=== PATIENT | male | born 1960 | race Caucasian/White ===

== ENCOUNTER 2017-07-05 13:32 | Emergency (ER) | payer OTHER ==
[2017-07-05] MEDS: morphine 2 MG INJ IV (15:14)
[2017-07-05] MEDS: DEXAMETHASONE 10 MG/ML 1 ML INJ IV (15:15)
== END 2017-07-05 16:15 | disposition home or self-care (01) ==
LOC: FTE 13:32
DX: M10.9 Gout, unspecified (principal)
CPT/HCPCS: 96374; 96375; 99284-25

== ENCOUNTER 2017-07-08 15:37 | Emergency (ER) | payer SELFPAY, OTHER | END 2017-07-08 16:31 | disposition left against medical advice (07) | LOC: E/R 16:31 | DX: Z53.21 Procedure and treatment not carried out due to patient leaving prior to being seen by health care provider (principal) ==

== ENCOUNTER 2017-07-08 16:22 | Inpatient (IN) | payer OTHER ==
[2017-07-08] MEDS ORDERED: ONDANSETRON 4 MG TAB PO (18:30)
[2017-07-08] MEDS ORDERED: DOCUSATE SODIUM 100 MG CAP PO (18:30)
[2017-07-08] MEDS ORDERED: NACL 0.9% 3 ML SYG IV (18:30)
[2017-07-08] MEDS ORDERED: MAGNESIUM HYDROXIDE 30ML CUP PO (18:30)
[2017-07-08] MEDS ORDERED: VANCOMYCIN IV PER PHARMACY XX (18:30)
[2017-07-08] MEDS ORDERED: ACETAMINOPHEN 650 MG SUPP PR (18:30)
[2017-07-08] MEDS ORDERED: HYDROCODONE/APAP (5/325) TAB PO (18:30)
[2017-07-08] MEDS ORDERED: BISACODYL (EC) 5 MG TAB PO (18:30)
[2017-07-08] MEDS ORDERED: ONDANSETRON 4 MG INJ IV (18:30)
[2017-07-08 21:21] LABS: CREATININE,URINE RANDOM 159.19 mg/dl (20-370); PROTEIN/CREAT RATIO 0.05 RATIO
[2017-07-08 21:22] LABS: ALANINE AMINOTRANSFERASE 31 IU/L (13-69); ALBUMIN 4.3 g/dl (3.3-4.9); ALBUMIN/GLOBULIN RATIO 1.19; ALKALINE PHOSPHATASE 104 IU/L (42-121); ANION GAP 16 (8-16); ASPARTATE AMINO TRANSFERASE 19 IU/L (15-46); BILIRUBIN,INDIRECT 0.2 mg/dl (0-1.1); BILIRUBIN,TOTAL 0.2 mg/dl (0.2-1.3); BLOOD UREA NITROGEN 21 mg/dl (7-20); CALCIUM 8.8 mg/dl (8.4-10.2); CARBON DIOXIDE 28 mmol/L (21-31); CHLORIDE 101 mmol/L (97-110); CREATININE 1.33 mg/dl (0.61-1.24); GLUCOSE 111 mg/dl (70-220); POTASSIUM 4.1 mmol/L (3.5-5.1); SODIUM 141 mmol/L (135-144); TOTAL PROTEIN 7.9 g/dl (6.1-8.1)
[2017-07-08] MEDS: APIXABAN 5 MG TABLET PO (21:24)
[2017-07-08] MEDS: morphine 2 MG INJ IV (21:26)
[2017-07-08 21:32] LABS: INR 1.06; PROTIME 13.9 Sec (11.9-14.9); PT RATIO 1.1
[2017-07-08] MEDS: HYDROCODONE/APAP (5/325) TAB PO (21:49)
[2017-07-09] MEDS: CEFTRIAXONE 1 GM/50 ML (PMX) 50 ML IVPB ×2 (01:10→18:50)
[2017-07-09] MEDS: VANCOMYCIN 2 GM in DEXTROSE 5% 500 ML IVPB (01:10)
[2017-07-09] MEDS: PANTOPRAZOLE 40 MG INJ IV (05:43)
[2017-07-09] MEDS: VANCOMYCIN 1.75 GM in DEXTROSE 5% 500 ML IVPB ×2 (09:09→21:34)
[2017-07-09] MEDS: APIXABAN 5 MG TABLET PO ×2 (09:16→21:34)
[2017-07-09] MEDS: ALLOPURINOL 300 MG TAB PO (09:16)
[2017-07-09] MEDS: FUROSEMIDE 20 MG INJ IV (09:16)
[2017-07-09] MEDS: HYDROCODONE/APAP (5/325) TAB PO ×2 (10:09→21:34)
[2017-07-09 11:33] LABS: ADD MAN DIFF? NO
[2017-07-09 11:35] LABS: WHITE BLOOD COUNT 9.4 10^3/ul (4.8-10.8)
[2017-07-09 11:35] LABS: BASOPHIL # 0.1 10^3/ul (0.0-0.1); BASOPHILS % 0.6 % (0.0-2.0); EOSINOPHILS # 0.2 10^3/ul (0.0-0.5); EOSINOPHILS % 2.6 % (0.0-7.0); HEMATOCRIT 36.7 % (42.0-52.0); HEMOGLOBIN 12.3 g/dl (14.0-18.0); LYMPHOCYTES # 1.5 10^3/ul (0.8-2.9); LYMPHOCYTES % 16.1 % (15.0-51.0); MEAN CORPUSCULAR HEMOGLOBIN 29.5 pg (29.0-33.0); MEAN CORPUSCULAR HGB CONC 33.5 g/dl (32.0-37.0); MEAN PLATELET VOLUME 9.6 fl (7.4-10.4); MONOCYTE # 0.9 10^3/ul (0.3-0.9); MONOCYTES % 9.1 % (0.0-11.0); NEUTROPHIL # 6.6 10^3/ul (1.6-7.5); NEUTROPHILS % 70.4 % (39.0-77.0); PLATELET COUNT 228 10^3/UL (140-415); RED BLOOD COUNT 4.17 10^6/ul (4.70-6.10); RED CELL DISTRIBUTION WIDTH 13.7 % (11.5-14.5)
[2017-07-09 13:56] LABS: HEMOGLOBIN A1C 5.5 % (0-5.9)
[2017-07-10] MEDS: ACETAMINOPHEN 325 MG TAB PO (03:10)
[2017-07-10] MEDS: PANTOPRAZOLE 40 MG INJ IV (05:47)
[2017-07-10 07:36] LABS: BLOOD UREA NITROGEN 24 mg/dl (7-20)
[2017-07-10 07:36] LABS: CREATININE 1.29 mg/dl (0.61-1.24)
[2017-07-10 07:45] LABS: VANCOMYCIN,TROUGH 20.7 ug/ml (10.0-20.0)
[2017-07-10] MEDS: FUROSEMIDE 20 MG INJ IV (09:10)
[2017-07-10] MEDS: APIXABAN 5 MG TABLET PO ×2 (09:11→21:32)
[2017-07-10] MEDS: ALLOPURINOL 300 MG TAB PO (09:11)
[2017-07-10] MEDS: VANCOMYCIN 1.25 GM in SOD CHLORIDE 0.45% 250 ML IVPB (11:42)
[2017-07-10] MEDS: CEFTRIAXONE 1 GM/50 ML (PMX) 50 ML IVPB (19:01)
[2017-07-11] MEDS: VANCOMYCIN 1.25 GM in SOD CHLORIDE 0.45% 250 ML IVPB ×2 (00:24→11:00)
[2017-07-11] MEDS: SOD CHLORIDE 0.9% 1,000 ML IV ×3 (00:28→20:39)
[2017-07-11] MEDS: PANTOPRAZOLE 40 MG INJ IV (06:13)
[2017-07-11] MEDS: ALLOPURINOL 300 MG TAB PO (08:53)
[2017-07-11] MEDS: APIXABAN 5 MG TABLET PO ×2 (08:53→20:39)
[2017-07-11] MEDS: FUROSEMIDE 20 MG INJ IV (08:54)
[2017-07-11] MEDS ORDERED: HYDROCODONE/APAP (10/325) TAB (09:12)
[2017-07-11] MEDS: CEFTAZIDIME 1GM/50 ML (PMX) 50 ML IVPB ×2 (14:06→21:29)
[2017-07-11] MEDS: LIDOCAINE 1% (MPF) 5 ML VIAL SC (17:20)
[2017-07-12] MEDS: SOD CHLORIDE 0.9% 1,000 ML IV (05:25)
[2017-07-12] MEDS: CEFTAZIDIME 1GM/50 ML (PMX) 50 ML IVPB ×3 (05:25→21:23)
[2017-07-12] MEDS: PANTOPRAZOLE 40 MG INJ IV (05:25)
[2017-07-12] MEDS: APIXABAN 5 MG TABLET PO ×2 (09:21→20:34)
[2017-07-12] MEDS: ALLOPURINOL 300 MG TAB PO (09:21)
[2017-07-12] MEDS: FUROSEMIDE 20 MG INJ IV (09:21)
[2017-07-12] MEDS: GENTAMICIN 0.1% 15 GM OINT TOP ×2 (16:00→20:33)
[2017-07-12] MEDS: MUPIROCIN 2% 22 GM OINT TOP ×2 (16:27→20:35)
[2017-07-12] MEDS: SOD CHLORIDE 0.9% 100 ML (18:48)
[2017-07-13] MEDS: HYDROCODONE/APAP (5/325) TAB PO (03:18)
[2017-07-13] MEDS: PANTOPRAZOLE (EC) 40 MG TAB PO (05:43)
[2017-07-13] MEDS: CEFTAZIDIME 1GM/50 ML (PMX) 50 ML IVPB ×3 (05:43→21:27)
[2017-07-13] MEDS: GENTAMICIN 0.1% 15 GM OINT TOP ×3 (09:00→21:27)
[2017-07-13] MEDS: MUPIROCIN 2% 22 GM OINT TOP ×2 (09:41→21:30)
[2017-07-13] MEDS: ALLOPURINOL 300 MG TAB PO (09:42)
[2017-07-13] MEDS: FUROSEMIDE 20 MG INJ IV (09:42)
[2017-07-13] MEDS: APIXABAN 5 MG TABLET PO ×2 (09:42→21:28)
[2017-07-13 11:14] LABS: CREATININE,URINE RANDOM 21.13 mg/dl (20-370); PROTEIN/CREAT RATIO 0.56 RATIO
[2017-07-13 12:04] LABS: ADD MAN DIFF? NO
[2017-07-13 12:10] LABS: BASOPHIL # 0.1 10^3/ul (0.0-0.1); BASOPHILS % 0.7 % (0.0-2.0); EOSINOPHILS # 0.3 10^3/ul (0.0-0.5); EOSINOPHILS % 2.8 % (0.0-7.0); HEMATOCRIT 39.8 % (42.0-52.0); HEMOGLOBIN 13.4 g/dl (14.0-18.0); LYMPHOCYTES # 1.6 10^3/ul (0.8-2.9); LYMPHOCYTES % 15.9 % (15.0-51.0); MEAN CORPUSCULAR HEMOGLOBIN 29.4 pg (29.0-33.0); MEAN CORPUSCULAR HGB CONC 33.7 g/dl (32.0-37.0); MEAN CORPUSCULAR VOLUME 87.3 fl (82.0-101.0); MEAN PLATELET VOLUME 9.5 fl (7.4-10.4); MONOCYTE # 0.9 10^3/ul (0.3-0.9); MONOCYTES % 8.5 % (0.0-11.0); NEUTROPHILS % 70.3 % (39.0-77.0); PLATELET COUNT 234 10^3/UL (140-415); RED BLOOD COUNT 4.56 10^6/ul (4.70-6.10); RED CELL DISTRIBUTION WIDTH 13.6 % (11.5-14.5)
[2017-07-13 12:32] LABS: ANION GAP 15 (8-16); BLOOD UREA NITROGEN 23 mg/dl (7-20); CALCIUM 9.1 mg/dl (8.4-10.2); CARBON DIOXIDE 32 mmol/L (21-31); CHLORIDE 99 mmol/L (97-110); CREATININE 1.39 mg/dl (0.61-1.24); GLUCOSE 124 mg/dl (70-220); POTASSIUM 3.9 mmol/L (3.5-5.1); SODIUM 142 mmol/L (135-144)
[2017-07-13] MEDS: ZOLPIDEM 5 MG TAB PO (21:28)
[2017-07-14] MEDS: CEFTAZIDIME 1GM/50 ML (PMX) 50 ML IVPB (06:23)
[2017-07-14] MEDS: PANTOPRAZOLE (EC) 40 MG TAB PO (06:24)
[2017-07-14] MEDS: GENTAMICIN 0.1% 15 GM OINT TOP ×3 (09:00→21:38)
[2017-07-14] MEDS: ALLOPURINOL 300 MG TAB PO (09:25)
[2017-07-14] MEDS: MUPIROCIN 2% 22 GM OINT TOP ×2 (09:25→21:41)
[2017-07-14] MEDS: FUROSEMIDE 20 MG INJ IV (09:25)
[2017-07-14] MEDS: APIXABAN 5 MG TABLET PO ×2 (09:25→21:42)
[2017-07-14] MEDS: CEFTAZIDIME IVPB (21:46)
[2017-07-14] MEDS: DEXTROSE 5% IVPB (21:46)
[2017-07-15] MEDS: ALLOPURINOL 300 MG TAB PO (08:33)
[2017-07-15] MEDS: APIXABAN 5 MG TABLET PO ×2 (08:33→21:27)
[2017-07-15] MEDS: PANTOPRAZOLE (EC) 40 MG TAB PO (08:33)
[2017-07-15] MEDS: FUROSEMIDE 20 MG INJ IV (08:33)
[2017-07-15] MEDS: MUPIROCIN 2% 22 GM OINT TOP ×2 (08:34→21:27)
[2017-07-15] MEDS: GENTAMICIN 0.1% 15 GM OINT TOP ×4 (08:34→21:27)
[2017-07-15] MEDS: CEFTAZIDIME IVPB ×3 (08:50→21:30)
[2017-07-15] MEDS: DEXTROSE 5% IVPB ×3 (08:50→21:30)
[2017-07-15] MEDS: HYDROCODONE/APAP (5/325) TAB PO (13:10)
[2017-07-16] MEDS: ZOLPIDEM 5 MG TAB PO (01:27)
[2017-07-16] MEDS: HYDROCODONE/APAP (5/325) TAB PO (02:48)
[2017-07-16] MEDS: PANTOPRAZOLE (EC) 40 MG TAB PO (06:00)
[2017-07-16] MEDS: CEFTAZIDIME IVPB (06:51)
[2017-07-16] MEDS: DEXTROSE 5% IVPB (06:51)
[2017-07-16] MEDS: APIXABAN 5 MG TABLET PO (09:08)
[2017-07-16] MEDS: GENTAMICIN 0.1% 15 GM OINT TOP (09:08)
[2017-07-16] MEDS: MUPIROCIN 2% 22 GM OINT TOP (09:08)
[2017-07-16] MEDS: FUROSEMIDE 20 MG INJ IV (09:08)
[2017-07-16] MEDS: ALLOPURINOL 300 MG TAB PO (09:08)
[2017-07-16 09:29] LABS: ADD MAN DIFF? NO
[2017-07-16 09:36] LABS: BASOPHIL # 0.1 10^3/ul (0.0-0.1); BASOPHILS % 0.5 % (0.0-2.0); EOSINOPHILS # 0.3 10^3/ul (0.0-0.5); EOSINOPHILS % 2.5 % (0.0-7.0); HEMATOCRIT 42.4 % (42.0-52.0); HEMOGLOBIN 13.8 g/dl (14.0-18.0); LYMPHOCYTES # 2.7 10^3/ul (0.8-2.9); LYMPHOCYTES % 24.1 % (15.0-51.0); MEAN CORPUSCULAR HEMOGLOBIN 28.8 pg (29.0-33.0); MEAN CORPUSCULAR HGB CONC 32.5 g/dl (32.0-37.0); MEAN CORPUSCULAR VOLUME 88.5 fl (82.0-101.0); MEAN PLATELET VOLUME 9.8 fl (7.4-10.4); MONOCYTE # 0.7 10^3/ul (0.3-0.9); MONOCYTES % 6.1 % (0.0-11.0); NEUTROPHIL # 7.4 10^3/ul (1.6-7.5); NEUTROPHILS % 65.7 % (39.0-77.0); PLATELET COUNT 261 10^3/UL (140-415); RED BLOOD COUNT 4.79 10^6/ul (4.70-6.10); RED CELL DISTRIBUTION WIDTH 13.7 % (11.5-14.5)
[2017-07-16 09:36] LABS: WHITE BLOOD COUNT 11.3 10^3/ul (4.8-10.8)
[2017-07-16 09:53] LABS: ANION GAP 16 (8-16); BLOOD UREA NITROGEN 25 mg/dl (7-20); CALCIUM 9.5 mg/dl (8.4-10.2); CARBON DIOXIDE 29 mmol/L (21-31); CHLORIDE 102 mmol/L (97-110); CREATININE 1.42 mg/dl (0.61-1.24); GLUCOSE 116 mg/dl (70-220); POTASSIUM 4.2 mmol/L (3.5-5.1); SODIUM 143 mmol/L (135-144)
== END 2017-07-16 11:00 | disposition left against medical advice (07) | DRG 300 ==
LOC: REC 16:22 → PP2 07-10 18:30
PROC: 02HV33Z Insertion of Infusion Device into Superior Vena Cava, Percutaneous Approach (ICD-10-PCS; principal; 2017-07-11)
DX: I87.2 Venous insufficiency (chronic) (peripheral) (principal); L03.116 Cellulitis of left lower limb; L03.115 Cellulitis of right lower limb; L97.819 Non-pressure chronic ulcer of other part of right lower leg with unspecified severity; E66.01 Morbid (severe) obesity due to excess calories; I12.9 Hypertensive chronic kidney disease with stage 1 through stage 4 chronic kidney disease, or unspecified chronic kidney disease; L97.829 Non-pressure chronic ulcer of other part of left lower leg with unspecified severity; B95.0 Streptococcus, group A, as the cause of diseases classified elsewhere; D64.9 Anemia, unspecified; K59.09 Other constipation; M10.9 Gout, unspecified; N18.9 Chronic kidney disease, unspecified; R60.0 Localized edema; Z86.718 Personal history of other venous thrombosis and embolism; Z68.35 Body mass index [BMI] 35.0-35.9, adult; Z79.01 Long term (current) use of anticoagulants
CPT/HCPCS: 36569; 71045; 76937; 80048; 80053; 80202; 81003; 82565; 82570; 83036; 84520; 85025; 85610; 87040; 87070; 87081; 87086; 93306; J1940

== ENCOUNTER 2018-09-16 14:51 | Emergency (ER) | payer OTHER | END 2018-09-16 16:55 | disposition home or self-care (01) | LOC: FTE 14:51 | DX: I82.503 Chronic embolism and thrombosis of unspecified deep veins of lower extremity, bilateral (principal); R23.9 Unspecified skin changes; R06.02 Shortness of breath; L30.4 Erythema intertrigo; I10 Essential (primary) hypertension; J45.909 Unspecified asthma, uncomplicated | CPT/HCPCS: 99283; Z7502 ==